=== PATIENT | female | born 1985 | race Caucasian/White ===

== ENCOUNTER 2016-12-05 21:25 | Emergency (ER) | payer OTHER ==
--- NOTE | ~2016-12-05 | CT2 ---
[facility] A Service of [facility] RADIOLOGY TEXT RESULTS PATIENT: MACHO WILLIS LOCATION: SED : 85 UNIT #: [id number] AGE: [address]: Nikunj Reyes MD SEX: F ORDER DR: [id number] [address] [address] [id number] MR#: [id number] #: [id number] NAME: MACHO WILLIS : 1985 SEX: F STUDY DATE/TIME: 12/05/2016 22:25 UNIT: SED ROOM: STUDY DESCRIPTION: CT Abd and Pelv W Cont Attending Physician: Nikunj Reyes M.D. Ordering Physician: Nikunj Reyes M.D. Primary Care Physician: No Primary Care Physician MEDICAL IMAGING REPORT This report is preliminary unless electronic signature is present. EXAM CT abdomen and pelvis with IV contrast HISTORY Left upper quadrant pain and abdomen pain and left flank pain and fever for [address] abdomen and pelvis was performed with IV contrast. This CT exam was performed with one or more of the following radiation dose reduction techniques: automatic exposure control, adjustment of mA and/or kV according to patient size, and iterative reconstruction. CT ABDOMEN: Liver, gallbladder, spleen, pancreas, kidneys, and adrenal glands are normal. No bowel dilatation. No ascites. No adenopathy. CT PELVIS: The uterus and adnexa are unremarkable. No bowel dilatation. No free fluid. Normal appendix. IMPRESSION Negative CT abdomen and pelvis. No acute findings. No bowel obstruction or urinary obstruction. Normal appendix. Dictated by... Abad Felix M.D. THIS IS AN ELECTRONICALLY VERIFIED REPORT Abad Felix M.D. at 12/06/2016 1:34 PM DFL/aa [facility] A Service of [facility] RADIOLOGY TEXT RESULTS PATIENT: MACHO WILLIS LOCATION: SED : 85 UNIT #: [id number] AGE: [address]: Nikunj Reyes MD SEX: F ORDER DR: TD: 12/06/2016 13:10 JOB #: [id number] MEDICAL IMAGING REPORT Page 1 of 1
[~2016-12-05 21:25] MED LIST: BACLOFEN10 MG; CLEOCIN PO; MOBIC; MOBIC15 MG PO; NAPROSYN500 MG PO; NEURONTIN100 MG; NO MEDICATIONS; NORFLEX100 M1 PO; TOPAMAX; TOPAMAX200 MG PO; TYLENOL #3; TYLENOL #3 PO; ZOFRAN ODT4 MG SL
[2016-12-05 21:42] LABS: URINE SOURCE CLEAN CATCH
[2016-12-05 21:45] LABS: URINE APPEARANCE CLEAR; URINE BILIRUBIN NEG (NEG); URINE BLOOD 1+ (NEG); URINE COLOR YELLOW; URINE GLUCOSE NEG (NORM); URINE KETONE TRACE (NEG); URINE LEUKOCYTE ESTERASE NEG (NEG); URINE NITRATE NEG (NEG); URINE PH 5.5 (5-8); URINE PROTEIN NEG (NEG); URINE SPECIFIC GRAVITY 1.025 (1.003-1.035); URINE UROBILINOGEN 0.2 MG/DL (NORM)
[2016-12-05 21:46] LABS: MICRO INDICATED? YES
[2016-12-05 21:47] LABS: BASOPHIL# 0.1 X10e3 (0-0.3); BASOPHIL% 0.4 % (0-2.5); EOSINOPHIL# 0.1 X10e3 (0-0.7); EOSINOPHIL% 0.9 % (0.0-7.0); HEMOGLOBIN 15.1 gm/dL (12.0-16.0); LYMPHOCYTE# 2.7 X10e3 (1.0-3.5); LYMPHOCYTE% 22.1 % (17.0-45.0); MEAN CELL VOLUME 94.2 FL (83-96); MEAN CORPUSCULAR HEMOGLOBIN 31.7 PG (28-34); MEAN CORPUSCULAR HGB CONC 33.6 g/dL (30-36); MONOCYTE# 0.5 X10e3 (0-1.0); MONOCYTE% 4.3 % (3.0-12.0); NEUTROPHIL# 8.8 X10e3 (1.5-7.1); NEUTROPHIL% 72.3 % (40-75); PLATELET COUNT 217 X10e3 (140-420); RED BLOOD COUNT 4.78 X10e (3.90-5.30); RED CELL DISTRIBUTION WIDTH 13.1 % (11.0-15.5); WHITE BLOOD COUNT 12.2 X10e3 (4.0-10.5)
[2016-12-05 21:48] LABS: DIFF IND NO
[2016-12-05 21:51] LABS: CULTURE INDICATED? NO; URINE BACTERIA NEG (NEG); URINE MUCUS PRESENT; URINE SQUAMOUS EPITHELIAL CELL MODERATE /[HPF]
[2016-12-05 22:08] LABS: ALBUMIN SERUM 4.5 g/dL (3.5-5.0); BILIRUBIN,TOTAL 1.2 mg/dL (0.2-2.0); CALCIUM SERUM 9.2 mg/dL (8.4-10.2); CREATININE SERUM 0.7 mg/dL (0.6-1.4); GLOM FILT RATE Estimated 116.3 mL/min (>60); POTASSIUM 3.7 mmol/L (3.5-5.1); PROTEIN TOTAL SERUM 7.7 g/dL (6.0-8.3)
== END 2016-12-06 00:01 | disposition home or self-care (01) ==
LOC: SED 21:25
DX: N39.0 Urinary tract infection, site not specified (principal); G43.909 Migraine, unspecified, not intractable, without status migrainosus; F17.200 Nicotine dependence, unspecified, uncomplicated; Z88.0 Allergy status to penicillin; Z79.899 Other long term (current) drug therapy
CPT/HCPCS: 36415; 74177; 80053; 81003; 82150; 83690; 84703; 85025; 96361; 96374; 96375; 99284; J1885; J2405; Q9967